=== PATIENT | male | born 1925 | race Caucasian/White ===

== ENCOUNTER 2016-09-11 11:21 | Emergency (ER) | payer MEDICARE, OTHER ==
[~2016-09-11] VITALS: Ht 180.3 cm; Wt 93.0 kg
[~2016-09-11 11:21] MED LIST: AMLO2.5T PO; ASPI81TA82 PO; CALC600T12 PO; CO Q200C; DOCU1CAP39 PO; FERR324T4 PO; FISH100020 PO; IMDU120T; MAGN400; PROT40TA PO; SYNT137T; TAB-TAB; VITA100017 PO
[2016-09-11 11:29] VITALS: BP 128/76; PULSE 110; RESP 50; TEMP 97.8; O2SAT 95
[2016-09-11 11:30] VITALS: BP 128/76; PULSE 108; RESP 50; TEMP 97.8; O2SAT 98
--- NOTE | 2016-09-11 11:54 | PD ---
HPI Chief Complaint: Respiratory Distress Time Seen by Provider: 11:45 Travel History International Travel<30 days: No Contact w/Intl Traveler<30days: No Traveled to known affect area: No History of Present Illness HPI This is an 89-year-old hospice patient who is brought in for shortness of breath. He normally gets 2 L of ascitic fluid drawn off every other day according to him. He has a chronic indwelling peritoneal drain. He says that his hospice nurse didn't show up to draw the fluid off this morning. Fluid had built up. He initially had complained of chest pain but I think this is really upper abdominal pain. He has no fever or presyncopal symptoms. He has end- stage liver cirrhosis and always has excessive ascites and chronic leg edema. Symptoms severity is moderate to severe. Duration one day. No alleviating factors PFSH Past Medical History Hx Anticoagulant Therapy: No Arthritis: Yes (FINGERS, NECK AND KNEES) Anxiety: No Depression: No Heart Rhythm Problems: No Cancer: No Cardiac Catheterization: Yes (2001) Cardiovascular Problems: Yes High Cholesterol: No Chest Pain: No Congestive Heart Failure: No Cirrhosis: Yes (?) Diabetes: No Diminished Hearing: No Endocrine: No Gastrointestinal Disorders: Yes (RECENT BLACK STOOLS) Genitourinary: No Hypertension: No Immune Disorder: No Implanted Vascular Access Dvce: No Musculoskeletal: Yes Neurologic: No Psychiatric: No Reproductive: No Respiratory: No Myocardial Infarction: No Thyroid Disease: Yes (HYPOTHYROIDISM) ?: Not Past Surgical History Abdominal Surgery: Yes (APPY IN 1944, ABD HERNIA REPAIR 04/2013, CHOLESYSTECTOMEY) Appendectomy: Yes (1944) Cardiac Surgery: Yes (CARDIAC CATH 2001) Cholecystectomy: Yes (04/2013) Ear Surgery: No Endocrine Surgery: No Eye Surgery: No Genitourinary Surgery: No Gynecologic Surgery: No Oral Surgery: Yes (pulled teeth) Pacemaker: No Thoracic Surgery: No Other Surgery: Yes Social History Alcohol Use: No Tobacco Use: No Substance Use: No Allergies-Medications (Allergen,Severity, Reaction): Coded Allergies: No Known Allergies (Verified , 03/19/15) Reported Meds & Prescriptions Reported Meds & Active Scripts Active Protonix (Pantoprazole Sodium) 40 Mg Tabdr 40 Mg PO DAILY 60 Days Ferrous Sulfate 325 Mg Tab 325 Mg PO BID 60 Days Colace 100 Mg Cap (Docusate Sodium) 100 Mg Cap 100 Mg PO BID 60 Days Reported Amlodipine Besylate 2.5 mg (Amlodipine Besylate) 2.5 Mg Tab 1 Tab PO DAILY Aspir-81 (Aspirin) 81 Mg Tab 81 Mg PO DAILY Mag-Ox 400 Mg Tab (Magnesium Oxide) 400 Mg Tab 400 Mg .XX Calcium (Calcium Carbonate) 600 Mg Tab 600 Mg PO DAILY Fish Oil ([place]-3 Fatty Acids) 1,000 Mg Cap 1,000 Mg PO Co Q-10 (Coenzyme Q10 (Ubidecarenone)) 200 Mg Cap 200 Mg Vitamin C (Ascorbic Acid) 1,000 Mg Tab 1,000 Mg PO DAILY Multivitamin (Multivitamins) 1 Tab Tab 1 DAILY Levoxyl (Levothyroxine Sodium) 137 Mcg Tab 175 Mcg DAILY Imdur (Isosorbide Mononitrate) 120 Mg Tab 60 BID Review of Systems General / Constitutional: No: Fever Eyes: No: Visual changes HENT: No: Headaches Cardiovascular: Positive: Irregular Rhythm, Tachycardia, Edema, No: Chest Pain or Discomfort Respiratory: Positive: Shortness of Breath Gastrointestinal: Positive: Abdominal Pain Genitourinary: No: Dysuria Musculoskeletal: Positive: Weakness, Edema, No: Pain Skin: No Rash Neurologic: Positive: Weakness Psychiatric: No: Depression Endocrine: No: Polydipsia Hematologic/Lymphatic: No: Easy Bruising Physical Exam Narrative GENERAL: Elderly well-developed patient with abdominal discomfort and dyspnea, has major ascites . SKIN: Focused skin assessment reveals no rash and nodules. Skin is Warm and dry. HEAD: Atraumatic. Normocephalic. EYES: Pupils equal and round. No scleral icterus. No injection or drainage. ENT: No nasal bleeding or discharge. Mucous membranes pink and moist. NECK: Trachea midline. No JVD. CARDIOVASCULAR: Irregularly irregular rhythm. No murmur appreciated. RESPIRATORY: No accessory muscle use. Clear to auscultation. Breath sounds equal bilaterally. GASTROINTESTINAL: Abdomen soft, has massive ascites. Abdomen very protuberant. Has an indwelling peritoneal catheter for drainage purposes. Hepatic and splenic margins not palpable. MUSCULOSKELETAL: No obvious deformities. No clubbing. No cyanosis. Symmetric pitting edema up to the knees NEUROLOGICAL: Awake and alert. No obvious cranial nerve deficits. Motor grossly within normal limits. Normal speech. PSYCHIATRIC: Appropriate mood and affect; insight and judgment normal. Data Data Last Documented VS Vital Signs Date Time Temp Pulse Resp B/P Pulse Ox O2 Delivery O2 Flow Rate FiO2 09/11/16 12:01 100 Non-Rebreather 15.00 09/11/16 12:00 103 25 115/73 09/11/16 11:30 97.8 Orders Complete Blood Count With Diff (09/11/16 11:48) Basic Metabolic Panel (Bmp) (09/11/16 11:48) Chest, Single Ap (09/11/16 ) Iv Access Insert/Monitor (09/11/16 11:48) Sodium Chlor 0.9% 1000 Ml Inj (Ns 1000 M (09/11/16 12:45) Labs Laboratory Tests Test 09/11/16 11:55 White Blood Count 5.8 TH/MM3 Red Blood Count 3.11 MIL/MM3 Hemoglobin 10.1 GM/DL Hematocrit 30.0 % Mean Corpuscular Volume 96.3 FL Mean Corpuscular Hemoglobin 32.4 PG Mean Corpuscular Hemoglobin 33.6 % Concent Red Cell Distribution Width 15.9 % Platelet Count 143 TH/MM3 Mean Platelet Volume 7.8 FL Neutrophils (%) (Auto) 72.9 % Lymphocytes (%) (Auto) 11.4 % Monocytes (%) (Auto) 11.1 % Eosinophils (%) (Auto) 3.9 % Basophils (%) (Auto) 0.7 % Neutrophils # (Auto) 4.3 TH/MM3 Lymphocytes # (Auto) 0.7 TH/MM3 Monocytes # (Auto) 0.6 TH/MM3 Eosinophils # (Auto) 0.2 TH/MM3 Basophils # (Auto) 0.0 TH/MM3 CBC Comment DIFF FINAL Differential Comment Sodium Level 139 MEQ/L Potassium Level 4.4 MEQ/L Chloride Level 107 MEQ/L Carbon Dioxide Level 26.2 MEQ/L Anion Gap 6 MEQ/L Blood Urea Nitrogen 22 MG/DL Creatinine 1.08 MG/DL Estimat Glomerular Filtration 64 ML/MIN Rate Random Glucose 103 MG/DL Calcium Level 7.9 MG/DL [facility] Medical Decision Making Medical Screen Exam Complete: Yes Emergency Medical Condition: Yes Medical Record Reviewed: Yes Differential Diagnosis Massive ascites, anasarca, respiratory effort impeded by diaphragmatic compression Narrative Course I have reviewed the patient's electronic medical record. Was last here 2014 and I saw him then for symptomatic anemia IV placed CBC is normal Metabolic profile is normal I reviewed his EKG which shows A. fib with a rate of around [address] elevation I reviewed his chest x-ray which shows no pulmonary edema or pleural effusion I looked up a syringe to his peritoneal drain. Ascitic fluid is rapidly draining out. At this point I drained out three quarters of a gallon and the patient feels much improved. Patient has drained out an awful lot of ascites. We have removed exactly 2.75 gallons from his perineal cavity. He feels much better at this time in. He is breathing well with no pain. Saturations are excellent on room air I discussed with the hospice nurse that she should instruct the patient's son how to drain fluid just in case it acutely relates between visits. The son shows a lot of interest in being able to take care of this himself. I did discuss with the son how to do it. Diagnosis Primary Impression: Anasarca Additional Impressions: Liver cirrhosis Qualified Code: K74.60 - Cirrhosis of liver with ascites, unspecified hepatic cirrhosis type Shortness of breath at rest Additional Instructions: The patient was advised to follow up with their physician and return if they worsen. Utilize Fluid restriction and low-sodium diet Med/Other Pt SpecificInfo: Other Disposition: 01 DISCHARGE HOME Condition: Stable Issac Willis MD Sep 11, 2016 11:54
[2016-09-11 12:00] VITALS: BP 115/73; PULSE 103; RESP 25; O2SAT 100
[2016-09-11 12:01] VITALS: O2SAT 100
[2016-09-11 12:24] LABS: AUTOMATED NEUTROPHIL # 4.3 TH/MM3 (1.8-7.7); BASOPHIL % 0.7 % (0.0-2.0); EOSINOPHIL # 0.2 TH/MM3 (0-0.4); EOSINOPHIL % 3.9 % (0.0-4.0); HEMO FLAGS DIFF FINAL; LYMPH % 11.4 % (9.0-44.0); LYMPHOCYTE # 0.7 TH/MM3 (1.0-4.8); MEAN CELL VOLUME 96.3 FL (80.0-100.0); MEAN CORPUSCULAR HEMOGLOBIN 32.4 PG (27.0-34.0); MEAN CORPUSCULAR HGB CONC 33.6 % (32.0-36.0); MONO % 11.1 % (0.0-8.0); NEUT % 72.9 % (16.0-70.0); PLATELET COUNT 143 TH/MM3 (150-450); RED BLOOD COUNT 3.11 MIL/MM3 (4.50-5.90); RED CELL DISTRIBUTION WIDTH 15.9 % (11.6-17.2); WHITE BLOOD COUNT 5.8 TH/MM3 (4.0-11.0)
[2016-09-11 12:35] LABS: BICARBONATE 26.2 MEQ/L (21.0-32.0); POTASSIUM 4.4 MEQ/L (3.5-5.1)
[2016-09-11] MEDS ORDERED: SODIUM CHLOR 0.9% 1000 ML INJ 1,000 ML IV SCH (12:45)
--- NOTE | 2016-09-11 13:23 | RADRPT ---
EXAM DATE/TIME: 09/11/2016 12:30 [place] COMPARISON: No previous studies available for comparison. INDICATIONS : Short of breath. MEDICAL HISTORY : Congestive heart failure. SURGICAL HISTORY : None. ENCOUNTER: Initial ACUITY: 1 day PAIN SCORE: Non-responsive. LOCATION: Bilateral chest FINDINGS: Review of the chest demonstrates a calcified right apical nodule measuring 8 mm, noted on prior chest x-ray in 2011. Vertebroplasty cement in one upper thoracic level. The lungs are symmetric u. No f ocal infiltrates seen. Heart is normal size. Mild tortuosity descending thoracic aorta. CONCLUSION: No focal infiltrate seen. No radiographic evidence of congestive failure. Davy Marte MD on September 11, 2016 at 13:21 Board Certified Radiologist. This report was verified electronically.
[2016-09-11 13:30] VITALS: BP 131/83; PULSE 110; RESP 28; O2SAT 100
--- NOTE | 2016-09-12 16:58 | EKG ---
Date Performed: 09/11/2016 Time Performed: 11:27:26 PTAGE: 89 years EKG: ATRIAL FIBRILLATION WITH RAPID VENTRICULAR RESPONSE LOW QRS VOLTAGE IN PRECORDIAL LEADS POS SIBLE ANTERIOR MYOCARDIAL INFARCTION When compared to previous tracing, there are now T waves Present in leads V1 through V3. ABNORMAL RHYTHM ECG PREVIOUS TRACING : 01/12/2014 09.20.40 DOCTOR: Loyd Kendrick Interpretating Date/Time 09/12/2016 16:57:20
== END 2016-09-11 14:52 | disposition home or self-care (01) ==
LOC: NEPE 11:21
DX: R18.8 Other ascites (principal); E03.9 Hypothyroidism, unspecified; R00.0 Tachycardia, unspecified; R60.1 Generalized edema; K74.60 Unspecified cirrhosis of liver; Z96.89 Presence of other specified functional implants; T85.9XXA Unspecified complication of internal prosthetic device, implant and graft, initial encounter; I48.91 Unspecified atrial fibrillation
CPT/HCPCS: 71010; 80048; 85025; 93005; 99284; J7030